=== PATIENT | female | born 1985 | race Caucasian/White ===

== ENCOUNTER 2017-09-20 10:59 | Emergency (ER) | payer MEDICAID ==
[~2017-09-20] VITALS: Ht 172.7 cm; Wt 63.5 kg
[~2017-09-20 10:59] MED LIST: Z.0.NO CURRENT MEDS
[2017-09-20 11:02] VITALS: BP 162/80; PULSE 80; RESP 16; TEMP 98.2; O2SAT 98
[2017-09-20] MEDS ORDERED: TYLETAB34 PO (13:49)
--- NOTE | 2017-09-20 14:07 | PD ---
HPI Chief Complaint: Injury Time Seen by Provider: 13:06 Travel History International Travel<30 days: No Contact w/Intl Traveler<30days: No Traveled to known affect area: No History of Present Illness HPI 32-year-old female presents to emergency department complaining of right fourth and fifth finger pain after smashing her finger into a ladder yesterday. Patient states that she was at work when this occurred and this is a Worker's Compensation case. Patient was sent from urgent care for "pain control and additional imaging". Patient states that the urgent care prescribed her anti- inflammatories and advise her to come to the emergency department. She states the pain is similar to yesterday and that there were no fractures seen on x- ray. Patient states that she had a dislocated finger and a "jammed" finger. Patient states that she is having difficulty moving her fingers which is why she thinks she was brought to the emergency department today. Patient does seem frustrated as she has only asked for pain control as her pain is excruciating at this point. PFSH Past Medical History ?: Not : 2 Para: 2 Tubal Ligation: Yes Past Surgical History Section: Yes Valve Replacement: Yes Social History Alcohol Use: No Tobacco Use: Yes (ppd) Substance Use: No Allergies-Medications (Allergen,Severity, Reaction): Coded Allergies: No Known Allergies (Verified Adverse Reaction, Unknown, 09/20/17) Reported Meds & Prescriptions Reported Meds & Active Scripts Active Tylenol-Codeine #3 (Acetaminophen-Codeine) 300-30 mg Tab 1-2 Tab PO Q6H PRN 3 Days Reported No Current Meds (Miscellaneous Medication) Misc Review of Systems Except as stated in HPI: all other systems reviewed are Neg Physical Exam Narrative GENERAL: Well-nourished, well-developed patient. SKIN: Focused skin assessment warm/dry. HEAD: Normocephalic. EYES: No scleral icterus. No injection or drainage. NECK: Supple, trachea midline. No JVD or lymphadenopathy. CARDIOVASCULAR: Regular rate and rhythm without murmurs, gallops, or rubs. RESPIRATORY: Breath sounds equal bilaterally. No accessory muscle use. MUSCULOSKELETAL: No cyanosis, or edema. Right fourth and fifth fingers-TTP to the phalanges and MCP's, scant ecchymosis , scant edema. Limited range of motion secondary to pain. BACK: Nontender without obvious deformity. No CVA tenderness. Data Data Last Documented VS Vital Signs Date Time Temp Pulse Resp B/P (MAP) Pulse Ox O2 Delivery O2 Flow Rate FiO2 09/20/17 11:02 98.2 80 16 162/80 (107) 98 MDM Medical Decision Making Medical Screen Exam Complete: Yes Emergency Medical Condition: Yes Differential Diagnosis Right fourth and fifth finger contusion, sprain, fracture Narrative Course 32-year-old female presents to emergency department complaining of right fourth and fifth finger pain after smashing her finger into a ladder yesterday. Patient states that she was at work when this occurred and this is a Worker's Compensation case. Patient was sent from urgent care for "pain control and additional imaging". Patient states that the urgent care prescribed her anti- inflammatories and advise her to come to the emergency department. She states the pain is similar to yesterday and that there were no fractures seen on x- ray. Patient states that she had a dislocated finger and a "jammed" finger. Patient states that she is having difficulty moving her fingers which is why she thinks she was brought to the emergency department today. Patient does seem frustrated as she has only asked for pain control as her pain is excruciating at this point. That is unstable. Patient does appear quite frustrated with the situation. Patient explained that the urgent care center here for pain control and concern of a ligament in her fourth finger. I believe that she is not moving her fingers because of the pain. Patient should follow-up with a Worker's Compensation case and follow-up as an outpatient with a hand specialist or orthopedist. I had patient call the urgent care while in the emergency department today and they do not appear to be helpful. I checked E force which appeared as if she had filled any control medication. Tylenol 3 prescribed for outpatient use. Advised patient to return to the urgent care for further treatment and evaluation. Return to emergency for worsening or persistent symptoms. Diagnosis Primary Impression: Finger contusion Qualified Codes: S60.00XA - Contusion of unspecified finger without damage to nail, initial encounter Referrals: Orthopedist Departure Forms: Tests/Procedures, Work Release Enter return to work date: Sep 23, 2017 Special Instructions: Light duty or off for at least 3 days Additional Instructions: Take medication as prescribed. Follow-up with your primary care physician or wherever your Worker's Compensation case takes you. Work as tolerated. Scripts Acetaminophen-Codeine (Tylenol-Codeine #3) 300-30 mg Tab 1-2 TAB PO Q6H Y for PAIN for 3 Days, #12 TAB 0 Refills Prov: Jenny Figueroa MD 09/20/17 Disposition: 01 DISCHARGE HOME Condition: Stable Mary Scott Sep 20, 2017 14:07
== END 2017-09-20 14:30 | disposition home or self-care (01) ==
LOC: NEPK 10:59
DX: S60.00XA Contusion of unspecified finger without damage to nail, initial encounter (principal)
CPT/HCPCS: 99283